=== PATIENT | female | born 1975 | race African-American/Black ===

== ENCOUNTER 2017-12-13 10:44 | Emergency (ER) | payer OTHER ==
[~2017-12-13] VITALS: Ht 157.5 cm; Wt 76.7 kg
[~2017-12-13 10:44] MED LIST: CIPROFLOXACIN500 M1 PO; COLACE 100 MG100 MG PO; DARVOCET-N 1001 EACH PO; IBUPROFEN 600600 M1 PO; IRON325 PO; NOHOMEMEDICATIONS; PHENERGAN 25 MG25 M1 PO; TRAMADOL 50 MG50 MG PO; VITAMIN B-12500 MCG PO
[2017-12-13] MEDS ORDERED: TESSALON PERLE100 MG PO (12:39)
[2017-12-13] MEDS ORDERED: PROVENTIL HFA6.7 G1 INH (12:39)
[2017-12-13] MEDS ORDERED: OSELB75 PO (12:39)
[2017-12-13 12:40] VITALS: BP 142/98
== END 2017-12-13 12:44 | disposition home or self-care (01) ==
LOC: ER 10:44
DX: J11.1 Influenza due to unidentified influenza virus with other respiratory manifestations (principal); F41.9 Anxiety disorder, unspecified; Z86.2 Personal history of diseases of the blood and blood-forming organs and certain disorders involving the immune mechanism; Z88.5 Allergy status to narcotic agent

== ENCOUNTER 2018-02-10 21:35 | Emergency (ER) | payer OTHER ==
[~2018-02-10] VITALS: Ht 160 cm; Wt 77.1 kg
[~2018-02-10 21:35] MED LIST changes: +OSELB75 PO; +PROVENTIL HFA6.7 G1 INH; +TESSALON PERLE100 MG PO
[2018-02-10 21:53] LABS: URINE BILIRUBIN NEGATIVE (Negative); URINE BLOOD 3+ (Negative); URINE CLARITY SL CLOUDY; URINE GLUCOSE-RANDOM* NEGATIVE (Negative); URINE KETONES NEGATIVE (Negative); URINE LEUKOCYTES NEGATIVE (Negative); URINE NITRITE POSITIVE (Negative); URINE PROTEIN (DIPSTICK) 1+ (Negative); URINE UROBILINOGEN 0.2 E.U./dl (0.2-1.0)
[2018-02-10 21:54] LABS: URINE COLOR PINK
[2018-02-10] MEDS ORDERED: MACROBID 100 M100 M1 PO (21:57)
[2018-02-10 22:02] LABS: BACTERIA 1-9 Few /HPF (None Seen); CASTS None Seen /LPF (None Seen); CRYSTALS None Seen /LPF (None Seen); MUCUS 0-3 Light strn/LPF (None Seen); SQUAMOUS 4-10 Moderate /LPF (0-3); URINE RBC >20 Many /HPF (0-2); URINE WBC 0-5 Rare /HPF (0-5)
[2018-02-10 23:05] VITALS: BP 151/102
== END 2018-02-10 23:07 | disposition home or self-care (01) ==
LOC: ER 21:35
PROVIDERS: Emergency Medicine
DX: N30.90 Cystitis, unspecified without hematuria (principal); Z88.5 Allergy status to narcotic agent

== ENCOUNTER 2019-09-21 18:24 | Emergency (ER) | payer OTHER ==
[~2019-09-21] VITALS: Ht 157.5 cm; Wt 77.1 kg
[~2019-09-21 18:24] MED LIST changes: +MACROBID 100 M100 M1 PO
[2019-09-21 19:33] LABS: ABSOLUTE NEUTROPHILS 3.3 thou/uL (1.4-8.2); BASOPHILS 0.8 % (0.0-2.0); EOSINOPHILS 0.7 % (0.0-3.0); HEMATOCRIT 42.8 % (37.0-47.0); HEMOGLOBIN 14.3 gm/dL (12.0-15.0); LYMPHOCYTES 34.5 % (24.0-44.0); MCH 30.6 pg (26.0-34.0); MCHC 33.3 g/dL (28.0-37.0); MCV 91.9 fL (80.0-100.0); MONOCYTES 5.7 % (1.0-8.0); PLATELET COUNT 265 thou/uL (150-400); POLYS 58.3 % (36.0-66.0); RBC 4.66 mil/uL (4.20-5.00); RDW 12.8 % (10.5-14.5); WBC 5.6 thou/uL (4.0-11.0)
[2019-09-21 19:40] LABS: CALCIUM 9.3 mg/dL (8.5-10.1); CREATININE 0.6 mg/dL (0.6-1.0); POTASSIUM 3.1 mmol/L (3.5-5.1)
[2019-09-21 19:46] LABS: ALBUMIN 4.2 g/dL (3.4-5.0); MAGNESIUM 1.8 mg/dL (1.8-2.4); TOTAL BILIRUBIN 0.7 mg/dL (<0.1-1.0); TOTAL PROTEIN 7.8 g/dL (6.4-8.2)
[2019-09-21] MEDS ORDERED: LIDOCAINE PAIN1 EACH TRANSDERM (19:54)
[2019-09-21] MEDS ORDERED: POTASSIUM20 PO (19:54)
[2019-09-21] MEDS ORDERED: ULTRAM 50MG TAB50 MG PO (19:54)
[2019-09-21 20:09] VITALS: BP 165/104
== END 2019-09-21 20:11 | disposition home or self-care (01) ==
LOC: ER 18:24
PROVIDERS: Physician Assistant
DX: M54.6 Pain in thoracic spine (principal); M62.830 Muscle spasm of back; I10 Essential (primary) hypertension; Z86.2 Personal history of diseases of the blood and blood-forming organs and certain disorders involving the immune mechanism; Z98.51 Tubal ligation status; Z88.6 Allergy status to analgesic agent